=== PATIENT | male | born 1950 | race African-American/Black ===

== ENCOUNTER 2019-01-28 09:45 | Inpatient (IN) ==
[2019-01-28] MEDS ORDERED: NS 1,000 ML IV PRN (10:04)
--- NOTE | 2019-01-28 10:48 | Diag Imaging Result Doc PS360 ---
EXAM: CT HEAD W/O CONTRAST HISTORY: poss CVA TECHNIQUE: CT head without contrast COMPARISON: None. FINDINGS: No parenchymal hemorrhage. No epidural or subdural hematoma. No subarachnoid hemorrhage. 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 No mass identified on this noncontrasted exam. No hydrocephalus. No sinus opacification. IMPRESSION: 1.No hemorrhage 2.Old left infarct. This exam was performed using automated exposure control, adjustment of mA or kV according to patient size, and/or use of iterative reconstruction technique. Electronically signed by Harish Clark 01/28/2019 10:45 AM
[2019-01-28 11:14] LABS: AGAP 12; ALBUMIN 3.7 g/dL (3.5-5.0); ALKALINE PHOSPHATASE 97 U/L (32-122); BUN 15 mg/dL (8-22); CALCIUM 9.2 mg/dL (8.8-10.2); CHLORIDE 99 mmol/L (98-107); COSMO 274; CREATININE 1.1 mg/dL (0.7-1.2); ESTIMATED GFR > 60; GLUCOSE 93 mg/dL (70-104); GOT 37 U/L (10-34); GPT 20 U/L (10-44); POTASSIUM 3.8 mmol/L (3.5-5.1); SODIUM 137 mmol/L (136-145); TCO2 26 mmol/L (25-35); TOTAL PROTEIN 9.2 g/dL (6.3-8.3)
--- NOTE | 2019-01-28 11:15 | Diag Imaging Result Doc PS360 ---
EXAM: CHEST-PORTABLE HISTORY: spech difficulty TECHNIQUE: Chest single view COMPARISON: 01/11/2014 FINDINGS: The lungs are well expanded. The heart is mildly prominent. There are sternal wires and surgical clips. The vessels are not distended. There are no infiltrates. No effusion identified. IMPRESSION: Stable chest. Electronically signed by Harish Clark 01/28/2019 11:13 AM
[2019-01-28 11:23] LABS: PROTIME 15.4 Seconds (11.0-16.0)
[2019-01-28 11:24] LABS: INR 1.16
--- NOTE | 2019-01-28 11:25 | EKG Report ---
Test Performed on : 01/28/2019 09:59:53 AM Test Reason : speech difficulty Blood Pressure : / mmHG Vent. Rate : 054 BPM Atrial Rate : 156 BPM P-R Int : 000 ms QRS Dur : 114 ms QT Int : 410 ms P-R-T Axes : 000 -19 021 degrees QTc Int : 388 ms Atrial fibrillation. with slow ventricular response. Incomplete left bundle branch block Abnormal ECG No previous ECGs available Unconfirmed Result
[2019-01-28 11:50] LABS: URINE SOURCE CLEAN CATCH
[2019-01-28 12:00] LABS: BILIRUBIN URINE NEGATIVE (NEGATIVE); BLOOD URINE NEGATIVE (NEGATIVE); CLARITY CLEAR (CLEAR); COLOR YELLOW; GLUCOSE URINE NEGATIVE (NEGATIVE); KETONE URINE NEGATIVE (NEGATIVE); LEUKOCYTES URINE 2+ (NEGATIVE); NITRITE URINE NEGATIVE (NEGATIVE); PROTEIN URINE TRACE mg/dL (NEGATIVE); UROBILINOGEN URINE NORMAL
[2019-01-28 12:01] LABS: URINE BACTERIA NEGATIVE /HFP; URINE CAST NONE SEEN /LPF; URINE EPITHELIAL CELLS <10 /HPF (<10); URINE RBC <10 /HPF (<10); URINE WBC <10 /HPF (<10); URINE YEAST NONE SEEN /HPF
[2019-01-28 12:02] LABS: URINE CRYSTAL NONE SEEN /HPF
--- NOTE | 2019-01-28 12:33 | PROVIDER DOCUMENTATION ---
This chart was entered by Sujata Nunes Scribe, acting as scribe for Edinson Bello MD. HPI-Neurological Disorder - General Chief Complaint: Stroke-Like Symptoms Stated Complaint: SLURRED SPEECH Time Seen by Provider: 01/28/19 09:48 Source: patient Allergies/Adverse Reactions: Patient Allergies Allergy/AdvReac Type Severity Reaction Status Date / Time No Known Allergies Allergy Verified 06/03/17 19:40 Home Medications: Home Medication List Medication Instructions Recorded Confirmed Last Taken Type Amlodipine Besylate 01/28/19 01/28/19 Unknown History Clonidine HCl 01/28/19 01/28/19 Unknown History Losartan/Hydrochlorothiazide 01/28/19 01/28/19 Unknown History [Losartan-Hctz 100-25 mg Tab] - History of Present Illness-Neuro Nature of Presenting Problem: Patient is a 68 year old male who presents with impaired speech that started yesterday. Patient states he is having difficulty finding his words. Denies numbness, tingling and weakness. Headache Location: reports: other (denies JOHN) Severity: reports: mild Onset/Duration: reports: 24 hours ago Timing: reports: still present, constant Context: reports: impaired speech Character of Altered Mental Status: reports: N/A Any recent trauma/injury?: reports: none Character of Deficits: reports: impaired speech New weakness or altered sensation location:: reports: none Cognitive Baseline: alert, oriented x3 Gait Baseline: walks without assistance Associated Symptoms: reports: denies symptoms Similar Symptoms Previously?: Yes (present since yesterday) Recently seen or treated by another doctor?: No Review of Systems - Adult - REVIEW OF SYSTEMS - ADULT Constitutional: reports: no symptoms reported. denies: chills, fever, fatique Eyes: reports: no symptoms reported. denies: decreased vision, blurred vision, double vision Ears, Nose, Mouth & Throat: reports: no symptoms reported Cardiovascular: reports: no symptoms reported. denies: chest pain, heart murmur, palpitations Respiratory: reports: no symptoms reported. denies: cough, shortness of breath, wheezing Gastrointestinal: reports: no symptoms reported. denies: abdominal pain, nausea, vomiting Genitourinary: reports: no symptoms reported Musculoskeletal: reports: no symptoms reported Integumentary: reports: no symptoms reported Neurological: reports: see HPI, other (impaired speech - difficulty finding words). denies: dizziness/vertigo, headache/migraines, numbness, seizure, syncope Psychiatric: reports: no symptoms reported Endocrine: reports: no symptoms reported Hematologic/Lymphatic: reports: no symptoms reported Allergic/Immunologic: reports: no symptoms reported All Other Systems: Reviewed and Negative Past History - Adult - PAST MEDICAL HISTORY-ADULT Review of Records: reports: Old Records Reviewed, Nursing Assessment Review, Medications Reviewed, Social history reviewed & non-contributory. Major Childhood Illnesses: reports: denies history Cardiovascular: reports: HTN, hyperlipidemia Respiratory: reports: denies history Gastrointestinal: reports: denies history Obstetrical/Gynecological: reports: denies history Genitourinary: reports: denies history Musculoskeletal: reports: other (GOUT) Neurological: reports: denies history Psychiatric: reports: denies history Endocrine/Immune: reports: denies history Other Conditions: reports: skin disorder (bilateral lower exremity edema), other (Gout) - PRIOR SURGERIES/PROCEDURES Surgical/Procedure History: reports: reviewed, not pertinent, other (aortic resection ) - IMMUNIZATION STATUS Childhood Immunizations: See Nurse Assessment Flu Vaccine: See Nurse Assessment - FAMILY HISTORY Family History: reviewed, not pertinent - SOCIAL HISTORY Smoking: denies Substance Use: denies Physical Exam- Neurological - Physical Exam-Neuro Initial Vital Signs Reviewed: Yes General Appearance: alert, no apparent distress. negative: lethargic Eye Exam: bilateral eye: normal inspection, PERRL, EOMI HENMT: normocephalic/atraumatic, moist mucous membranes. negative: angioedema, hearing deficit Head Injury: no evidence of injury. negative: contusions, ecchymosis, lacerations Respiratory: chest non-tender, lungs clear, normal breath sounds. negative: rhonchi, stridor, wheezing Cardiovascular: normal peripheral pulses, irregularly irregular. negative: JVD, systolic murmur Abdominal Exam: normal bowel sounds, non tender, soft. negative: distended, rigid Extremity: normal range of motion, non-tender, normal gait, other (2 + pitting pretibial edema bilaterally). negative: deformity, erythema speech language pathology assistant Exam: normal hearing, PERRL, abnormal speech (difficulty finding words). negative: abnormal eye position, facial asymmetry, facial droop, facial paresthesias, facial weakness, hearing deficit (R), hearing deficit (L), tongue deviation to R, tongue deviation to L Coordination/Gait: normal gait Motor/Sensory: no motor deficit, no sensory deficit. negative: sensory deficit Neurologic: speech language pathology assistant II-XII nml as tested, no motor/sensory deficits, other (impaired speech - difficulty finding words). negative: facial droop, sensory deficit Integumentary: normal color, normal turgor, warm/dry. negative: cyanosis, ecchy mosis, erythema, pallor Psych/Mental Status: normal mood/affect, oriented x 3. negative: anxious, paranoid - Glascow Coma Scale Best Eye Response: (4) open spontaneously Best Verbal Response: (5) oriented Best Motor Response: (6) obeys commands Total Glascow Score: 15 Progress - PLAN OF CARE/RESULTS Progress/Plan/Lab Results: Vital Signs - 8 hr 01/28/19 09:49 Temperature 97.2 F L Pulse Rate 60 Respiratory Rate 16 Blood Pressure 154/82 O2 Sat by Pulse Oximetry 99 Laboratory Results - last 24 hr 01/28/19 01/28/19 01/28/19 10:25 10:25 10:25 PT 15.4 INR 1.16 PTT (Actin FS) 30.0 Sodium 137 Potassium 3.8 Chloride 99 Carbon Dioxide 26 Anion Gap 12 BUN 15 Creatinine 1.1 Estimated GFR/1.73 m2 > 60 BUN/Creatinine Ratio 14 Glucose 93 POC Glucose Calculated Osmolality 274 Calcium 9.2 Total Bilirubin 0.80 AST 37 H ALT 20 Alkaline Phosphatase 97 Troponin T < 0.010 Total Protein 9.2 H Albumin 3.7 Globulin 6.0 Albumin/Globulin Ratio 1.0 Urine Source Urine Color Urine Clarity Urine pH Ur Specific [place] Urine Protein Urine Ketones Urine Blood Urine Nitrite Urine Bilirubin Urine Urobilinogen Urine Microscopic RBC Urine WBC Urine Microscopic WBC Ur Epithelial Cells Urine Crystals Urine Bacteria Urine Casts Urine Yeast Urine Glucose 01/28/19 01/28/19 11:11 11:43 PT INR PTT (Actin FS) Sodium Potassium Chloride Carbon Dioxide Anion Gap BUN Creatinine Estimated GFR/1.73 m2 BUN/Creatinine Ratio Glucose POC Glucose 89 Calculated Osmolality Calcium Total Bilirubin AST ALT Alkaline Phosphatase Troponin T Total Protein Albumin Globulin Albumin/Globulin Ratio Urine Source CLEAN CATCH Urine Color YELLOW Urine Clarity CLEAR Urine pH 7.0 Ur Specific [place] 1.000 Urine Protein TRACE A Urine Ketones NEGATIVE Urine Blood NEGATIVE Urine Nitrite NEGATIVE Urine Bilirubin NEGATIVE Urine Urobilinogen NORMAL Urine Microscopic RBC <10 Urine WBC 2+ A Urine Microscopic WBC <10 Ur Epithelial Cells <10 Urine Crystals NONE SEEN Urine Bacteria NEGATIVE Urine Casts NONE SEEN Urine Yeast NONE SEEN Urine Glucose NEGATIVE Orders Category Date Time Status Cardiac Monitoring DIRECTED Care 01/28/19 10:04 Active Finger Stick Blood Sugar (ED) DIRECTED Care 01/28/19 10:04 Active Misc. NRSG Communication Order DIRECTED Care 01/28/19 10:04 Active Saline Loc NOW Care 01/28/19 10:04 Active CHEST-PORTABLE [RAD] Stat Exams 01/28/19 10:[address] HEAD W/O CONTRAST [CT] Stat Exams 01/28/19 10:04 Completed CBC WITH ELECTRONIC DIFF [HEME] Stat Lab 01/28/19 10:04 Ordered COMPREHENSIVE METABOLIC PANEL [CHEM] Stat Lab 01/28/19 10:25 Completed PROTIME WITH INR [COAG] Stat Lab 01/28/19 10:25 Completed PTT [COAG] Stat Lab 01/28/19 10:25 Completed TROPONIN T Stat Lab 01/28/19 10:[address] W/POSS RFLX CULT [URINALYSIS] Stat Lab 01/28/19 11:43 Completed URINE CULTURE [RM] Routine Lab 01/28/19 12:02 Ordered 0.9% Sodium Chloride Inj [Ns] 1,000 ml Med 01/28/19 10:04 Active IV 50 mls/hr EKG [EKG] Stat Ther 01/28/19 10:04 Draft Result Diagrams: 01/28/19 10:25 - EKG 1 Time of EKG reading by physician:: 09:59 EKG Read and Signed by:: Edinson Bello EKG Interpretation (*Must complete 3 of following elements*): Abnormal Rate: 54 Rhythm: atrial fibrillation with slow ventricular response [place]: normal QRS: LBB (incomplete) Comments: abnormal ECG - XRAY 1 XRAY Study: Chest Impression: See EMR Report (EXAM: CHEST-PORTABLE HISTORY: spech difficulty TECHNIQUE: Chest single view COMPARISON: 01/11/2014 FINDINGS: The lungs are well expanded. The heart is mildly prominent. There are sternal wires and surgical clips. The vessels are not distended. There are no infiltrates. No effusion identified. IMPRESSION: Stable chest. Electronically signed by Harish Clark 01/28/2019 11:13 AM 01/28/19 1113 Interpreting Physician: Harish Clark MD Dictated Date/Time: 01/28/19 1112 cc: Edinson Bello MD; Demarcus Peña MD) - CT/MRI 1 CT Study: Head Impression: See EMR Report (EXAM: CT HEAD W/O CONTRAST HISTORY: poss CVA TECHNIQUE: CT head without contrast COMPARISON: None. FINDINGS: No parenchymal hemorrhage. No epidural or subdural hematoma. No subarachnoid hemorrhage. 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 No mass identified on this noncontrasted exam. No hydrocephalus. No sinus opacification. IMPRESSION: 1.No hemorrhage 2.Old left infarct. This exam was performed using automated exposure control, adjustment of mA or kV according to patient size, and/or use of iterative reconstruction technique. Electronically signed by Harish Clark 01/28/2019 10:45 AM 01/28/19 1045 Interpreting Physician: Harish Clark MD Dictated Date/Time: 01/28/19 1044 cc: Edinson Bello MD; Demarcus Peña MD) - CONSULTS/PCP/HOSPITALIST Notification #1 *Consult/PCP/Hospitalist*: Dr. Alberts Time Discussed: 12:24 Reason/Comments: Dr. Bello consulted with Dr. Alberts about patient. Consult Disposition: Admit Departure - Departure Date of Disposition Decision: 01/28/19 Time of Disposition Decision: 12:25 DIAGNOSIS: New onset a-fib CVA (cerebral vascular accident) Qualifiers: CVA mechanism: unspecified Qualified Code(s): I63.9 - Cerebral infarction, unspecified Disposition: ADMITTED INPATIENT 09 Certified Medical Emergency: Emergent Condition: Stable Referrals and Follow-Ups: Demarcus Peña MD [Primary Care Provider] - - Critical Care Note This patient required my direct & personal management of CC.: No Attestation - Physician/ ALISON Attestation Patient care was provided by Advanced Practice Provider:: No The physician spent face to face time with patient:: Yes Advanced Practice Provider documentation review:: Supervising physician onsite and consulted in the evaluation and care of this patient. The physician did have a face to face encounter with the patient. - NIH Stroke Scale NIH Type: Initial Evaluation Level of Consciousness: 0-Alert LOC Questions (ask month and age): 0-Answers Both Correctly LOC Commands (ask to open & close eyes;make a fist, let go): 0-Obeys Both Correctly Best Gaze (horizontal eye movement): 0-Normal Visual (use finger movement, counting or visual threat): 0-No Visual Loss Facial Palsy (show teeth or raise eyebrows & close eyes tght: 0-Symmetrical Movement Motor Function-left arm: 0-Normal Motor Function-right arm: 0-Normal Motor Function-left le-Normal Motor Function-right le-Normal Limb Ataxia(yywwyk-jahe-[id number], or heel to ibarra): 0-No Ataxia Sensory(pin prick to face,arms,trunk,legs-compare side/side): 0-No Ataxia Best Language(name item/read sentence.Ex-Down to Earth): 0-No Aphasia Dysarthria(Pt read words or say words Ex.Mama,Tip-Top,Thanks: 0-Normal Articulation Extinction and Inattention: 0-Normal Modified Blanchard Score Criteria: 0-no symptoms Stroke tPA Guidelines - Inclusion Criteria for IV tPA 18 years old or older: Yes Ischemic stroke with measurable deficit: No Onset <3 hours ago *OR* 3-4.5 hours ago: No This chart was documented by the indicated scribe, (Sujata Nunes, Andriy) and accu rately reflects the services I performed and decisions made by me, Edinson Bello MD, as attested by the provider's signature.
[2019-01-28] MEDS ORDERED: LOVENOX 1 MG/KG SUBQ ONE (12:34)
[2019-01-28] MEDS ORDERED: LOVENOX SUBQ ONE (13:15)
[2019-01-28 13:59] LABS: BASO# 0.02 X1000 (0.0-0.2); BASO% 0.3 % (0.0-0.8); EOS# 0.03 X1000 (0.0-0.7); EOS% 0.4 % (0.0-10.0); HEMATOCRIT 38.9 % (42.0-52.0); HEMOGLOBIN 13.4 g/dL (14.0-18.0); IMM GRAN# 0.01 X1000 (0.0-0.04); IMM GRAN% 0.1 % (0.0-0.5); LYMPH# 3.83 X1000 (1.2-3.4); LYMPH% 50.3 % (20.5-51.1); MCH 29.6 PG (27-31); MCHC 34.4 g/dL (33-37); MCV 86.1 FL (81-99); MONO# 0.75 X1000 (0.11-0.59); MONO% 9.9 % (1.7-9.3); MPV 12.4 FL (7.4-10.4); NEUT# 2.97 X1000 (1.4-6.5); PLT 148 X1000 (130-400); RBC 4.52 XMIL (4.7-6.1); RDW 13.6 % (11.5-14.5); WBC 7.61 X1000 (4.8-10.8)
[2019-01-28] MEDS ORDERED: APRESOLINE IV PRN (15:51)
--- NOTE | 2019-01-28 16:27 | Extremity Venous Study ---
Carotid Ultrasound - 01/28/2019 INDICATION: CVA, TECHNIQUE: COMPARISON: None FINDINGS: The carotid artery systems are patent bilaterally. There is no significant stenosis. No elevated velocities. Maximum velocity on the right side is 94 cm/s in the distal internal carotid artery. Maximum velocity on the left side is 67 cm/s in the mid internal carotid artery. The vertebral arteries are patent. There are a couple of mixed echotexture nodules in the right lobe of the thyroid. These measure about 1.8 cm each. IMPRESSION: 1. No carotid artery stenosis. 2. Indeterminate, mixed echotexture nodules in the right lobe of the thyroid. Electronically signed by Rosalio Youssef 01/28/2019 4:24 PM
[2019-01-28 17:13] LABS: CK INDEX 0.6 (0.0-2.5); CK-MB 1.93 ng/mL (0.0-5.0)
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
[2019-01-28 22:22] LABS: CK INDEX 0.6 (0.0-2.5); CK-MB 1.85 ng/mL (0.0-5.0)
--- NOTE | 2019-01-29 01:26 | HISTORY AND PHYSICAL ---
ADDENDUM: Patient seen and examined by myself. Full note dictated and discussed with nurse practitioner. Patient presented the hospital with slurred speech. Seems to have improved at this point. He noted that he is having difficulty finding words. Currently is able to speak seemingly without any difficulty. We will admit him the hospital, rule out TIA versus stroke. We will check carotid echo and follow. cc: Luis Alberts MD
[2019-01-29] MEDS ORDERED: LOVENOX SUBQ SCH (02:00)
[2019-01-29 05:17] VITALS: BP 157/75
[2019-01-29 06:19] LABS: AGAP 9; ALKALINE PHOSPHATASE 76 U/L (32-122); BUN 10 mg/dL (8-22); CALCIUM 8.6 mg/dL (8.8-10.2); CHLORIDE 106 mmol/L (98-107); COSMO 282; CREATININE 0.9 mg/dL (0.7-1.2); ESTIMATED GFR > 60; GLUCOSE 91 mg/dL (70-104); GOT 29 U/L (10-34); GPT 15 U/L (10-44); POTASSIUM 3.6 mmol/L (3.5-5.1); SODIUM 142 mmol/L (136-145); TCO2 27 mmol/L (25-35); TOTAL PROTEIN 7.7 g/dL (6.3-8.3)
[2019-01-29 07:06] LABS: BASO# 0.01 X1000 (0.0-0.2); BASO% 0.2 % (0.0-0.8); EOS# 0.05 X1000 (0.0-0.7); HEMATOCRIT 36.7 % (42.0-52.0); HEMOGLOBIN 12.4 g/dL (14.0-18.0); LYMPH# 2.53 X1000 (1.2-3.4); LYMPH% 52.3 % (20.5-51.1); MCH 28.8 PG (27-31); MCHC 33.8 g/dL (33-37); MCV 85.2 FL (81-99); MONO# 0.55 X1000 (0.11-0.59); MONO% 11.4 % (1.7-9.3); MPV 11.3 FL (7.4-10.4); NEUT% 35.1 % (42.2-75.2); PLT 149 X1000 (130-400); RBC 4.31 XMIL (4.7-6.1); RDW 13.4 % (11.5-14.5); WBC 4.84 X1000 (4.8-10.8)
[2019-01-29] MEDS ORDERED: NORVASC PO SCH (10:15)
[2019-01-29] MEDS ORDERED: HYDROCHLOROTHIAZIDE PO SCH (11:00)
[2019-01-29] MEDS ORDERED: COZAAR PO SCH (11:00)
--- NOTE | 2019-01-29 11:25 | ECHO REPORT ---
ORDER DATE: 01/28/2019 ECHOCARDIOGRAPHIC MEASUREMENTS: 1. Interventricular septum 1.1. 2. Left ventricular posterior wall 1.1. 3. Diastolic diameter 5.1. 4. Left atrium 4.1. 5. Aorta 3.2 cm. FINDINGS: 1. Tricuspid valve was normal. 2. Aortic valve leaflets are mildly sclerosed, trileaflet opening normally. 3. Pulmonic valve was normal. There was mild pulmonary regurgitation. 4. Mitral valve was normal. There is mild mitral annular calcification. 5. There is mild tricuspid regurgitation. Peak velocity across the tricuspid valve was 3.2 m/sec. 6. Pulmonary artery systolic pressure of 50 mmHg. 7. There is mild mitral regurgitation. Peak velocity across the aortic valve less than 2 m/sec by Doppler studies. There is no aortic stenosis or regurgitation. Normal left ventricular cavity size. Estimated ejection fraction of 65%. 8. There is no pericardial effusion or obvious intracardiac mass or thrombus seen. 9. Left atrium was enlarged. cc: MD Valarie Forde CRNP Gregory S. Cheatham, MD
--- NOTE | 2019-01-30 10:02 | DISCHARGE SUMMARY ---
ADMISSION DATE: 01/28/2019 DISCHARGE DATE: 01/29/2019 DISCHARGE ADDENDUM: Patient seen and examined by myself. Full note dictated and discussed with nurse practitioner. On discharge, patient is awake, alert, he is oriented. He is in no distress. No focal neurological changes. Speech is regular. Memory is intact. We will discharge patient home on baby aspirin. He will follow up outpatient with his primary care and may consider an MRI as an outpatient. cc: Luis Alberts MD
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
== END 2019-01-29 13:00 | disposition home or self-care (01) | DRG 69 ==
LOC: P.ED 09:45 → P.MEDSURG 12:55
PROVIDERS: ADMIT Family Medicine; ATTEND Family Medicine
CPT/HCPCS: 70450; 71010; 71045; 80053; 81001; 82550; 82553; 82948; 84443; 84484; 85025; 85610; 85730; 87088; 93005; 93306; 93880; 96360; 96361; 96372; 99285; A9270; J0360; J1650; J7030; XXXXX